=== PATIENT | male | born 1985 | race Caucasian/White ===

== ENCOUNTER 2018-09-03 11:31 | Emergency (ER) | payer SELFPAY ==
[~2018-09-03] VITALS: Ht 180.3 cm; Wt 106.8 kg
[2018-09-03] MEDS ORDERED: MULT-1285 PO (11:33)
[2018-09-03] MEDS ORDERED: ACET-2247 PO (11:41)
[2018-09-03] MEDS ORDERED: OXYM-17 NASAL (11:41)
[2018-09-03 12:38] LABS: GLUCOSE,POINT OF CARE 104 MG/DL (70-110)
[2018-09-03 12:46] LABS: BASOPHILS % (AUTO) 0.8 % (0.0-2.0); EOSINOPHILS % (AUTO) 3.1 % (1.0-6.0); HEMATOCRIT 40.8 % (41-53); HEMOGLOBIN 13.7 g/dL (13.5-17.5); LYMPHOCYTES # (AUTO) 2.7 K/uL (1.0-4.8); LYMPHOCYTES % (AUTO) 36.5 % (22.0-44.0); MEAN CORPUSCULAR HEMOGLOBIN 30.3 pg (26.0-34.0); MEAN CORPUSCULAR HGB CONC 33.7 G/dL (31.0-37.0); MEAN CORPUSCULAR VOLUME 90 fL (80-100); MONOCYTES # (AUTO) 0.7 K/uL (0.1-1.0); MONOCYTES % (AUTO) 9.7 % (2.0-9.0); NEUTROPHILS # (AUTO) 3.8 K/uL (1.8-7.7); NEUTROPHILS % (AUTO) 49.9 % (40.0-70.0); PLATELET COUNT (AUTO) 326 K/uL (150-450); RED BLOOD CELL COUNT(AUTO) 4.54 MIL/uL (4.50-5.90); RED CELL DISTRIBUTION WIDTH 13.7 % (11.5-14.5)
[2018-09-03 12:53] LABS: ANION GAP 7 mmol/L (8-16); CALCIUM, TOTAL 8.9 mg/dL (8.8-10.5); CARBON DIOXIDE 29 mmol/L (22-29); CHLORIDE 104 mmol/L (98-107); CREATININE 1.25 mg/dL (0.60-1.30); GLOMERULAR FILTR. RATE CALC > 60 mL/min (>60); GLUCOSE,RANDOM 102 mg/dL (70-110); POTASSIUM 3.9 mmol/L (3.5-5.1); SODIUM SERUM 140 mmol/L (136-145); UREA NITROGEN, BLOOD 14 mg/dL (7-18)
[2018-09-03 12:59] LABS: ALANINE AMINOTRANSFERASE 56 U/L (12-78); ALBUMIN 3.8 g/dL (3.4-5.0); ALKALINE PHOSPHATASE 69 U/L (46-116); ASPARTATE AMINOTRANSFERASE 23 U/L (15-37); BILIRUBIN,TOTAL 0.3 mg/dL (0.1-1.0); TOTAL PROTEIN, SERUM 7.7 g/dL (6.4-8.2)
[2018-09-03] MEDS ORDERED: TraMADol HCL 50 MG TABLET PO ONE (13:00)
[2018-09-03] MEDS ORDERED: PredniSONE 20 MG TABLET PO ONE (13:15)
[2018-09-03] MEDS ORDERED: ACYCLOVIR 200 MG CAPSULE PO ONE (13:15)
[2018-09-03 13:40] VITALS: BP 115/79
== END 2018-09-03 13:50 | disposition home or self-care (01) ==
LOC: EMS 11:33
DX: G51.0 Bell's palsy (principal)
CPT/HCPCS: 36415; 80053; 82962; 85025; 99284; J7512